=== PATIENT | female | born 1990 | race Caucasian/White ===

== ENCOUNTER 2020-10-29 00:49 | Emergency (ER) | payer OTHER, SELFPAY ==
[2020-10-29] VITALS (15 sets, daily range): BP systolic 97–117; BP diastolic 52–73; PULSE 62–90; RESP 10–24; TEMP 37.2; O2SAT 93–98
--- NOTE | 2020-10-29 00:56 | ECG_ITS ---
Measurements Intervals [place] Rate: 71 P: 28 CA: 140 QRS: 38 QRSD: 88 T: 37 QT: 390 QTc: 425 Interpretive Statements SINUS RHYTHM BASELINE ARTIFACT- II, V1, V3-V5 NORMAL ECG Electronically Signed On 10-29-2020 6:05:43 CDT by Ganesh Kim D.O.
[2020-10-29] MEDS: SODIUM CHLORIDE 0.9% IV 1,000 ML 999 ML IV CONT (01:04)
--- NOTE | 2020-10-29 01:13 | PC.NURSE ---
Pt states she is unable to provide urine sample at this time
[2020-10-29 01:27] LABS: Basophils Absolute Auto 0.1 K/mm3 (0.0-0.1); Basophils Percent Auto 0.6 % (0.2-1.2); Eosinophils Percent Auto 0.1 % (0-4.4); Hematocrit 37.5 % (37.0-47.0); Hemoglobin 11.8 g/dL (12.0-15.0); Immature Granulocyte Absolute 0.05 K/mm3 (0.00-0.031); Immature Granulocyte Percent A 0.5 % (0-0.5); Lymphocytes Absolute Auto 0.68 K/mm3 (0.9-3.2); Lymphocytes Percent Auto 7.1 % (18.3-44.2); Mean Corpuscular HGB Conc 31.5 g/dl (32-36); Mean Corpuscular Hemoglobin 28.5 pg (26-34); Mean Corpuscular Volume 90.6 fl (80-100); Mean Platelet Volume 10.9 fl (7.4-10.4); Monocytes Absolute Auto 0.6 K/mm3 (0.1-0.6); Monocytes Percent Auto 5.8 % (2.6-8.5); Neutrophils Absolute Auto 8.2 K/mm3 (1.3-6.7); Neutrophils Percent Auto 85.9 % (45.5-73.1); Platelet Count Result 180 k/mm3 (150-375); Red Blood Count 4.14 M/mm3 (4.2-5.4); Red Cell Distribution Width 13.2 % (11.5-14.5); White Blood Count 9.5 K/mm3 (4.5-10.0)
[2020-10-29 01:37] LABS: Acetaminophen < 10 ug/mL (10-30); Ammonia < 9 umol/L (9-30); Ethanol < 10 mg/dL (<10); Salicylate < 1.0 mg/dL (2-20)
[2020-10-29 01:46] LABS: Alanine Aminotransferase 11 U/L (4-35); Albumin Level 3.5 g/dL (3.5-5.1); Alkaline Phosphatase 41 U/L (38-126); Anion Gap 6 mmol/L (8-16); Aspartate Amino Transferase 15 U/L (14-36); Bilirubin,Total 0.3 mg/dL (0.2-1.3); Blood Urea Nitrogen 15 mg/dL (7-17); Calcium 8.3 mg/dL (8.4-10.2); Carbon Dioxide 26 mmol/L (22-30); Chloride 103 mmol/L (98-107); Estimated CRCL calculation 137 ml/min; Estimated Glomerular Filt Rate > 60; Glucose 114 mg/dL (65-110); Potassium 4.1 mmol/L (3.4-5.0); Sodium 135 mmol/L (137-145)
--- NOTE | 2020-10-29 02:01 | ED.GENADULT ---
HPI - General Adult General Chief complaint: Syncope Stated complaint: loc @ work, n/weak Time Seen by Provider: 10/29/20 00:55 History of Present Illness HPI narrative: Patient presents with generalized fatigue. Reports she has been feeling bad for most of the day is getting progressively worse her customer called ambulance for sudden she came in for evaluation. She denies fever. She does report some pain with urination. Reports she does vape but denies any other illicit substances. She denies any chest pain or shortness of breath she denies any cough or congestion. She denies any nausea or vomiting Related Data Allergies Allergy/AdvReac Type Severity Reaction Status Date / Time No Known Allergies Allergy Verified 10/29/20 01:02 Review of Systems Review of Systems: CONSTITUTIONAL: Denies fever, chills, or sweats. EYES: Denies visual changes, redness, or discharge. ENT: Denies rhinorrhea, congestion, sore throat, or otalgia. CARDIOVASCULAR: Denies chest pain, palpitations, or edema. RESPIRATORY: Denies cough or dyspnea. GASTROINTESTINAL: Denies abdominal pain, nausea, vomiting, or diarrhea. GENITOURINARY: Denies hematuria. SKIN: Denies rash or itching. MUSCULOSKELETAL: Denies back pain, joint pain, or myalgia. NEUROLOGIC: Denies headache, numbness, dizziness, or weakness. PSYCHIATRIC: Denies anxiety or depression. All systems reviewed & are unremarkable except as noted in HPI and below PMFSH Social History Social History Gender identity (if verbalized by the patient): Female Exam Narrative: GENERAL: Well-appearing, well-nourished, and in no acute distress. HEAD: Normocephalic, atraumatic. EYES: PERRLA and EOMI. ENT: Nares clear, no rhinorrhea or epistaxis. Mucous membranes moist. NECK: Supple. No masses. No JVD CHEST: Clear to auscultation. No respiratory distress. No wheezes rales or rhonchi HEART: Regular rate and rhythm. No murmur heard. Normal peripheral pulses. ABDOMEN: Soft, nontender, nondistended, no CVA tenderness EXTREMITIES: Normal range of motion. No edema. SKIN: Warm, dry, no rash. NEURO: No focal deficits. Alert and oriented x3. PSYCH: Normal mood and affect. Course Reevaluation(s) Reevaluation #1: Pateint was sleeing comfortably but easily rousable. REsults and plan reviewed with patient. Date: 10/29/20 Time: 04:03 Vital Signs Vital signs: Vital Signs Temperature 37.2 C 10/29/20 00:51 Pulse Rate 72 10/29/20 00:51 Respiratory Rate 18 10/29/20 00:51 Blood Pressure 117/63 10/29/20 00:51 Pulse Oximetry 95 10/29/20 00:51 Temperature 37.2 C 10/29/20 00:51 Pulse Rate 79 10/29/20 04:44 Respiratory Rate 16 10/29/20 04:44 Blood Pressure 104/69 10/29/20 04:44 Pulse Oximetry 98 10/29/20 04:44 Medical Decision Making MDM Narrative Medical decision making narrative: H&P as above, vss, pt looks clinically well, exam without focal neurological deficits patient was responsive when engaged, labs concerning for urinary tract infection substance abuse, additional labs/img considered, symptomatic relief available as needed, on reevaluation pt continues to looks clinically well continues to be arousable. Suspect urinary tract infection, dns severe sepsis, pyelonephritis. plan to tx/monitor as op w/ pcm f/u findings/plan discussed with pt, pt agree/comfortable with plan, return precautions given Vital Signs Vital Signs: Vital Signs Temperature 37.2 C 10/29/20 00:51 Pulse Rate 72 10/29/20 00:51 Respiratory Rate 18 10/29/20 00:51 Blood Pressure 117/63 10/29/20 00:51 Pulse Oximetry 95 10/29/20 00:51 Temperature 37.2 C 10/29/20 00:51 Pulse Rate 79 10/29/20 04:44 Respiratory Rate 16 10/29/20 04:44 Blood Pressure 104/69 10/29/20 04:44 Pulse Oximetry 98 10/29/20 04:44 Lab Data Result diagrams: 10/29/20 01:18 10/29/20 01:18 Labs: Lab Results 10/11
[2020-10-29 02:44] LABS: Add Urine Microscopic? YES; Appearance Urine Cloudy (Clear); Bacteria Urine Trace /hpf; Bilirubin Urine Negative (Negative); Color Urine Yellow (Yellow); Glucose Urine UA Negative (Negative); Ketones Urine Negative (Negative); Leukocyte Esterase Ur 3+ LEU/UL (Negative); Mucus Urine Rare /lpf; Nitrate Urine Negative (Negative); Protein Urine 1+ mg/dL (Negative); Specific Grav Ur 1.017 (1.001-1.035); Squamous Epithelial Cell Urine Occasional /hpf (Few); Urobilinogen Urine Negative mg/dL (<2.0); WBC Clumps Urine Present /HPF; WBC Urine >75 /hpf
[2020-10-29 02:47] LABS: Blood Urine Negative (Negative)
[2020-10-29 02:51] LABS: Amphetamine Screen Urine Negative (Negative); Barbiturate Screen Urine Negative (Negative); Benzodiazepines Screen Urine Negative (Negative); Cannabinoid Screen Urine Positive (Negative); Cocaine Screen Urine Positive (Negative); Methadone Screen Urine Negative (Negative); Opiate Screen Urine Negative (Negative); Phencyclidine Screen Urine Negative (Negative)
[2020-10-29 02:53] LABS: Pregnancy On Board Control Positive; Urine Pregnancy Test Negative
== END 2020-10-29 04:58 | disposition home or self-care (01) ==
PROVIDERS: Emergency Provider Emergency Medicine
DX: F14.10 Cocaine abuse, uncomplicated (principal); N39.0 Urinary tract infection, site not specified
CPT/HCPCS: 36415; 51701; 80053; 80307; 81001; 81025; 82140; 85025; 87077; 87086; 87088; 87186; 93005; 96361; 96365; 99284; J0696; J7030